=== PATIENT | female | born 1960 | race Caucasian/White ===

== ENCOUNTER 2022-10-18 13:24 | Outpatient (CLI) | payer OTHER, SELFPAY ==
--- NOTE | 2022-10-18 14:00 | CRLHL7_ITS ---
For Patients: As a result of the Century Cures Act, medical imaging exams and procedure reports are released immediately into your electronic medical record. You may view this report before your referring provider. If you have questions, please contact your health care provider. CT ANGIOGRAM NECK DATE: 10/19/2022 CLINICAL HISTORY: Patient with fibromuscular dysplasia. TECHNIQUE: Standard helical CT image acquisition of the neck up to the skull base after bolus intravenous contrast enhancement. Multiplanar reconstructed images performed on a separate workstation. COMPARISON: None. FINDINGS: There is mild luminal irregularity in the mid cervical segments of the internal carotid arteries bilaterally, consistent with fibromuscular dysplasia. 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 The origins of the great vessels from the aortic arch are patent. The origin of the right vertebral artery is patent. The origin of the left vertebral artery is patent. The common carotid arteries are patent. There is no stenosis at the origin of the right internal carotid artery. There is no stenosis at the origin of the left internal carotid artery. The rest of the cervical segments of the internal carotid arteries are patent up to the skull base. The right vertebral artery is dominant. The cervical segments of the vertebral arteries are patent up to the skull base. The visualized lung apices are unremarkable. The thyroid gland is unremarkable. The soft tissues of the neck are unremarkable. There are degenerative changes in the cervical spine. IMPRESSION: Mild luminal irregularity in the mid cervical segments of the internal carotid arteries bilaterally is consistent with fibromuscular dysplasia. 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 Please note that all CT scans at this facility use dose modulation, iterative reconstruction, and/or weight-based dosing when appropriate to reduce radiation dose to as low as reasonably achievable. Dictated by: Evelin Thakur MD @ 10/19/2022 07:17:50 (Electronically Signed)
--- NOTE | 2022-10-18 14:10 | CRLHL7_ITS ---
For Patients: As a result of the Century Cures Act, medical imaging exams and procedure reports are released immediately into your electronic medical record. You may view this report before your referring provider. If you have questions, please contact your health care provider. CT ANGIOGRAM HEAD DATE: 10/19/2022 CLINICAL HISTORY: Patient with fibromuscular dysplasia. TECHNIQUE: Standard helical CT image acquisition through the intracranial circulation following intravenous administration of contrast material with bolus tracking. Multiplanar reconstructed images were performed and interpreted. COMPARISON: None. FINDINGS: There is no cerebral aneurysm or large vessel occlusion. The right internal carotid artery is normal. The right middle cerebral artery and its branches are normal. The right anterior cerebral artery and its branches are normal. The left internal carotid artery is normal. The left middle cerebral artery and its branches are normal. The left anterior cerebral artery and its branches are normal. The anterior communicating artery is well visualized and appears normal. The right vertebral artery and PICA are normal. The left vertebral artery and PICA are normal. The right vertebral artery is dominant. The basilar artery is patent and appears normal. The right posterior cerebral artery is normal. The left posterior cerebral artery is normal. The visualized venous structures are patent. IMPRESSION: Normal CT angiogram of the head without intracranial aneurysm or other neurovascular abnormality. Please note that all CT scans at this facility use dose modulation, iterative reconstruction, and/or weight-based dosing when appropriate to reduce radiation dose to as low as reasonably achievable. Dictated by: Evelin Thakur MD @ 10/19/2022 07:21:28 (Electronically Signed)
== END 2022-10-18 13:25 | disposition home or self-care (01) ==
PROVIDERS: PCP Family Medicine
DX: I25.42 Coronary artery dissection (principal); I77.3 Arterial fibromuscular dysplasia
CPT/HCPCS: 70496; 70498; Q9967

== ENCOUNTER 2023-02-23 08:43 | Outpatient (CLI) | payer OTHER, SELFPAY ==
--- NOTE | 2023-02-23 08:36 | W.ANESCHARGE ---
Anesthesia Charges Start Date/Time Anesthesia Start Date: 02/23/23 Anesthesia Start Time: 09:26 Stop Date/Time Anesthesia Stop Date: 02/23/23 Anesthesia Stop Time: 10:12
--- NOTE | 2023-02-23 10:15 | W.ANESCHARGE ---
Anesthesia Charges Start Date/Time Anesthesia Start Date: 02/23/23 Anesthesia Start Time: 09:26 Stop Date/Time Anesthesia Stop Date: 02/23/23 Anesthesia Stop Time: 10:12
== END 2023-02-23 08:44 | disposition home or self-care (01) ==
LOC: OP CLINIC 08:45
PROVIDERS: PCP Family Medicine; Visit Provider Surgery
DX: Z12.11 Encounter for screening for malignant neoplasm of colon (principal); K63.5 Polyp of colon; K63.89 Other specified diseases of intestine
CPT/HCPCS: 45380; 45385; 811; 88305; J2704

== ENCOUNTER 2023-03-23 15:48 | Outpatient (CLI) | payer OTHER, SELFPAY | END 2023-03-23 15:49 | disposition home or self-care (01) | PROVIDERS: PCP Family Medicine; Visit Provider Family Medicine | DX: Z00.00 Encounter for general adult medical examination without abnormal findings (principal); R63.5 Abnormal weight gain; R61 Generalized hyperhidrosis; F41.9 Anxiety disorder, unspecified; Z11.59 Encounter for screening for other viral diseases | CPT/HCPCS: 84443; 86803 ==

== ENCOUNTER 2023-04-18 17:05 | Outpatient (CLI) | payer OTHER, SELFPAY ==
--- NOTE | 2023-04-18 17:15 | CRLHL7_ITS ---
For Patients: As a result of the Century Cures Act, medical imaging exams and procedure reports are released immediately into your electronic medical record. You may view this report before your referring provider. If you have questions, please contact your health care provider. BILATERAL SCREENING MAMMOGRAM WITH COMPUTER-AIDED DETECTION AND TOMOSYNTHESIS TECHNIQUE: CC and MLO views were obtained. These mammographic images have been obtained using full-field digital technique. These mammographic images were interpreted with the benefit of computer-aided detection. Breast Tomosynthesis was used in this interpretation. COMPARISON FILM: 04/26/19, 03/28/18, 11/30/16. FINDINGS: The breasts are heterogeneously dense, which may obscure small masses IMPRESSION: There is no radiographic evidence for malignancy. ASSESSMENT: BI-RADS Category 2: Benign RECOMMENDATION: Routine screening mammogram in 1 year. A lay language report of this examination will be provided to the patient. Matthew Menchaca M.D. Diagnostic Radiologist [email or web address]/jose armando Transcribed: 12:15 p.fish suárez/Dictated by: Matthew Menchaca MD @ 04/21/2023 11:08:00 AM (Electronically Signed)
== END 2023-04-18 17:06 | disposition home or self-care (01) ==
LOC: MAMMO 17:06
PROVIDERS: PCP Family Medicine; Visit Provider Family Medicine
DX: Z12.31 Encounter for screening mammogram for malignant neoplasm of breast (principal); R92.2 Inconclusive mammogram
CPT/HCPCS: 77063; 77067

== ENCOUNTER 2024-04-22 12:50 | Outpatient (CLI) | payer OTHER, SELFPAY ==
--- NOTE | 2024-04-22 13:00 | CRLHL7_ITS ---
For Patients: As a result of the Century Cures Act, medical imaging exams and procedure reports are released immediately into your electronic medical record. You may view this report before your referring provider. If you have questions, please contact your health care provider. BILATERAL SCREENING MAMMOGRAM WITH COMPUTER-AIDED DETECTION AND TOMOSYNTHESIS TECHNIQUE: CC and MLO views were obtained. These mammographic images have been obtained using full-field digital technique. These mammographic images were interpreted with the benefit of computer-aided detection. Breast Tomosynthesis was used in this interpretation. COMPARISON FILM: 04/18/23, 04/26/19, 03/28/18. FINDINGS: The breasts are heterogeneously dense, which may obscure small masses. IMPRESSION: There is no radiographic evidence for malignancy. ASSESSMENT: BI-RADS Category 1: Negative RECOMMENDATION: Routine screening mammogram in 1 year. A lay language report of this examination will be provided to the patient. Matthew Menchaca M.D. Diagnostic Radiologist [email or web address] LEMUEL/jose armando Transcribed: 2:00 p.mNeo suárez/Dictated by: Matthew Menchaca MD @ 04/29/2024 9:54:00 AM (Electronically Signed)
== END 2024-04-22 12:51 | disposition home or self-care (01) ==
LOC: MAMMO 12:51
PROVIDERS: PCP Family Medicine; Visit Provider Family Medicine
DX: Z12.31 Encounter for screening mammogram for malignant neoplasm of breast (principal); R92.333 Mammographic heterogeneous density, bilateral breasts
CPT/HCPCS: 77063; 77067

== ENCOUNTER 2024-05-09 13:33 | Outpatient (CLI) | payer OTHER, SELFPAY ==
--- NOTE | 2024-05-09 13:45 | CRLHL7_ITS ---
For Patients: As a result of the 21st Century Cures Act, medical imaging exams and procedure reports are released immediately into your electronic medical record. You may view this report before your referring provider. If you have questions, please contact your health care provider. CLINICAL INDICATION: Left shoulder pain. COMPARISON IMAGING STUDIES: None available at time of interpretation. TECHNICAL: Non-contrast MRI of the left shoulder. Axial, sagittal oblique and coronal oblique T1, PD, PD FS, T2 and T2 FS images. 1.5 Angle MR scanner. FINDINGS: GLENOHUMERAL JOINT: Effusion: Physiologic quantity of joint fluid. Humeral Head Articular Cartilage: Maintained. Glenoid Articular Cartilage: Maintained. Alignment: Maintained. Capsule: No generalized capsular edema or capsular thickening. OSSEOUS STRUCTURES: No fracture or avascular necrosis. Small focus of reactive bone marrow edema involves the greater tuberosity. CORACOACROMIAL ARCH: Acromial Morphology: Type 2 acromial morphology. Slight anterolateral downward sloping of the acromion. No os acromiale. There is spurring of the undersurface of the anterolateral acromion. Lateral acromial thickness is 6 mm. Acromiohumeral Interval: At its narrowest, the interval measures 5 mm. Mild prominence of the coracoacromial ligament. Coracohumeral Interval: At its narrowest, the coracohumeral interval measures 10 mm. Coracoid index is 16 mm. ACROMIOCLAVICULAR JOINT REGION: AC joint intact. Coracoclavicular ligament intact. BURSAE: There is a small amount of subacromial-subdeltoid and subcoracoid bursal fluid present. ROTATOR CUFF TENDONS AND MUSCLES AND DELTOID: Supraspinatus and Infraspinatus: The distal supraspinatus tendon is abnormal over an approximately 18 millimeter anterior/posterior by 9 millimeter medial/lateral extent. This relates to a combination of tendinosis and distal tendon tearing. This includes a 6 millimeter area of probable full-thickness tearing present at the footplate as seen on coronal oblique T2 image number 13 of series 6. Additional partial tearing is present adjacent to that is small area of suspected full-thickness tearing. No supraspinatus muscle atrophy. Distal infraspinatus tendon is intact. No infraspinatus muscle atrophy. Teres Minor: Distal teres minor tendon is intact. No muscle atrophy. Subscapularis: Mild distal subscapularis tendinosis. No subscapularis tendon tear or muscle atrophy. Deltoid: No muscle atrophy or edema. BICEPS TENDON, LONG HEAD: The long head of the biceps tendon is intact. No subluxation or dislocation of tendon from bicipital groove. GLENOID LABRUM: Attenuated and frayed appearance of the posterior superior labrum. OTHER FINDINGS: There is no abnormality within the suprascapular or spinoglenoid notches nor within the quadrilateral space. No axillary adenopathy or mass. IMPRESSION: 1. Small area of suspected full-thickness supraspinatus tendon tearing at the footplate. No muscle atrophy. 2. Small amount of subacromial-subdeltoid and subcoracoid bursal fluid suggesting bursitis. 3. Slight anterior lateral downward sloping of the acromion with subacromial spurring. Mildly narrowed acromial humeral interval. 4. No fracture. Dictated by Faustino Garrido MD @ 05/10/2024 8:23:47 AM (Electronically Signed)
== END 2024-05-09 13:34 | disposition home or self-care (01) ==
PROVIDERS: PCP Family Medicine; Visit Provider Family Medicine
DX: M25.512 Pain in left shoulder (principal); M75.102 Unspecified rotator cuff tear or rupture of left shoulder, not specified as traumatic; M75.52 Bursitis of left shoulder
CPT/HCPCS: 73221; 87086

== ENCOUNTER 2024-05-21 10:27 | Outpatient (CLI) | payer OTHER, SELFPAY ==
[2024-05-21 11:56] VITALS: BP 128/70; PULSE 76; RESP 18
--- NOTE | 2024-05-21 13:16 | W.PM.STED ---
Stress Test Note Date Date Seen: 05/21/24 Date of test: 05/21/24 Providers Primary care provider: Marjan Veliz Stress test physician: Ricky Ovalles Stress Test Note Stress test ordered: Exercise Stress Test Indication for test: Chest pain, history of SCAD Results discussion: This nice lady presents for the above test, the risks benefits and side effects are discussed in detail, she would like to proceed. Cardiac stress test medical history form is done. Pretest EKG shows normal sinus rhythm, with a ventricular rate of 60, blood pressure 130 and 74. EKG shows right bundle-branch block patient is exercised for a total time of 7 minutes 34 seconds following Raji protocol, she achieved a metabolic equivalent of 9.1 Mets, with a maximum heart rate of 138 which is 102% of the max. Subjectively she did develop left-sided chest discomfort with pressure, that resolved with recovery. Test was terminated, because of shortness of breath and chest pain. Review of her tracing did not show any significant ST wave changes suggestive of ischemia, there was no dysrhythmias. Impression: Positive stress test that is subjectively positive, electrographic Johana negative. Follow up suggested: Given her history, of angioplasty with SCAD. Further testing is suggested, such as the exercise Myoview. Review with her professional development manager at [facility] is suggested. Patient left this testing facility in good condition back to baseline.
== END 2024-05-21 11:58 | disposition home or self-care (01) ==
LOC: STRESS 10:28
PROVIDERS: PCP Family Medicine; Visit Provider Family Medicine
DX: R07.89 Other chest pain (principal); I25.10 Atherosclerotic heart disease of native coronary artery without angina pectoris; I77.3 Arterial fibromuscular dysplasia
CPT/HCPCS: 93016; 93017

== ENCOUNTER 2024-06-17 14:30 | Outpatient (CLI) | payer OTHER, SELFPAY | END 2024-06-17 14:31 | disposition home or self-care (01) | LOC: NFLDREF 06-20 13:34 | PROVIDERS: PCP Family Medicine; Referring Provider Family Medicine; Visit Provider Family Medicine | DX: R82.90 Unspecified abnormal findings in urine (principal) | CPT/HCPCS: 87086 ==

== ENCOUNTER 2024-06-28 09:11 | Day surgery (SDC) | payer OTHER, SELFPAY ==
[2024-06-28] VITALS (15 sets, daily range): BP systolic 100–135; BP diastolic 49–68; PULSE 60–72; RESP 16; TEMP 36.1–36.7; O2SAT 96–100; BMI 32.2
[2024-06-28] MEDS: SODIUM CHLORIDE 0.9 % (FLUSH) 10 ML SYRINGE IVF (09:42)
[2024-06-28] MEDS: 0.9 % SODIUM CHLORIDE 500 ML 500 ML 100 ML IV (09:42)
--- NOTE | 2024-06-28 09:46 | P.ORPRC_ITS ---
Procedure Note Date of procedure: 06/28/24 Procedure: PREOPERATIVE DIAGNOSES: 1. Left shoulder rotator cuff tear. 2. Left shoulder subacromial impingement syndrome. POSTOPERATIVE DIAGNOSES: 1. Left shoulder rotator cuff tear - anterior supraspinatus 2. Left shoulder subacromial impingement syndrome. NAME OF OPERATION: 1. Left shoulder arthroscopic rotator cuff repair. 2. Left shoulder arthroscopic bursectomy, subacromial decompression/partial acromioplasty. SURGEON: Christaino Cee MD ANESTHESIOLOGIST AND CRITICAL CARE: Karin Bullock P.A.-C.. An compliance assistant was critical for this case to aide in patient positioning, suture manipulation, arm positioning, instrument positioning, and closure. ANESTHESIA: General plus preoperative regional nerve block. IMPLANTS: Arthrex knotless 2.6 mm FiberTak anchors x2; Arthrex 5.5 mm SwiveLock anchor. COMPLICATIONS: None ESTIMATED BLOOD LOSS: 10 mL INDICATIONS: The patient is a pleasant, 63-year-old female who has experienced right shoulder pain that has been increasing in recent time. Physical exam and imaging were consistent with a rotator cuff tear. Given these findings, as well as the weakness and pain, and failure to improve with nonoperative management, recommendation was made for surgery. FINDINGS: Exam under anesthesia revealed stable shoulder with full range of motion. The diagnostic arthroscopy revealed healthy chondral surfaces of the glenoid and humeral head. The Subscapularis tendon was intact. The long head o f the biceps tendon was intact. The rotator cuff tendon was found to be torn full thickness at the anterior margin of the supraspinatus measuring 1.5 cm in the anterior-posterior direction. The glenoid labrum was intact. No loose bodies were identified within the pouch or subscapularis recess. Significant downsloping of the anterior lateral acromion causing impingement the rotator cuff attachment. PROCEDURE: Following a thorough discussion of risks, benefits, and alternatives, consent was obtained and the operative shoulder was marked. A regional nerve block was performed by anesthesia staff in preop holding. The patient was brought to the operating room and placed supine on the operating table. Induction of anesthesia was completed, and patient was given IV Ancef preoperatively for prophylaxis. A surgical time-out was performed confirming patient identity, surgical site, and procedure. Patient was placed into the beach chair position. Head was placed in padded overhead crane inspector in neutral alignment, and all bony prominences were well padded. The operative shoulder and upper extremity were prepped and draped in the appropriate sterile fashion using ChloraPrep. The glenohumeral joint was injected with 40 mL of normal saline using and 18g spinal needle from a posterior approach. Posterior portal was established. Anterior portal was established after localization with a spinal needle and a 7.0 mm cannula was placed here. Diagnostic arthroscopy was then performed with findings as noted above. There was noted be a tear of the anterior supraspinatus. A PDS suture was placed percutaneously using a spinal needle through the tear sites that could be identified from the subacromial space. Frayed supraspinatus tissue was debrided using arthroscopic shaver. The camera was then placed into the subacromial space and a lateral portal was established after localization with spinal needle.. Subacromial bursectomy was performed using arthroscopic shaver. After debriding the acromion of soft tissue it was noted to be downsloping significantly and causing impingement on the rotator cuff. Decision was made to proceed with subacromial decompression acromioplasty to create more space for the rotator cuff. Partial acromioplasty was performed using arthroscopic bur. Acromioplasty was completed using the bone block cutting technique with the bur placed posteriorly while viewing laterally. After the acromioplasty was performed. A passport cannulas placed in the lateral portal. The supraspinatus footprint was debrided of soft tissue and lightly decorticated using the bone-cutting shaver. After debridement, the tear measured 1.5 cm anterior posterior direction. Small stab incisions were placed off the lateral aspect of the acromion. Through these stab incisions knotless 2.6 mm FiberTak anchors were placed in the anterior medial and posterior medial aspects of the supraspinatus footprint. A FiberLink suture was then passed through the cuff in used to pass each set of sutures independently. Medial row repair was then performed using the knotless anchors. FiberLink suture was then placed posteriorly the legs tag suture to incorporate the dog ear posteriorly. FiberTape sutures and FiberLink suture were then placed into a 5.5 mm SwiveLock anchor. Sutures were tensioned the SwiveLock anchor was secured into position. Excellent securing of the rotator cuff was achieved with good tension on the cuff. The eyelet sutures were tugged on and found that the anchor had excellent stability within the bone. The shoulder was placed through range of motion and found to be stable. The rotator cuff was re-probed and found to be stable. Remnant sutures were then cut and removed. Instruments and cannulas were removed. Excess fluid was drained, closure performed with 3-0 nylon simple interrupted sutures.. Sterile dressings were applied and arm was placed into an abduction sling. Patient was then rotated back into supine position, woken from anesthesia, transferred to the PACU in stable condition. PLAN: 1. Discharged to home day of surgery. 2. Ice for pain and swelling. 3. Tylenol and oxycodone as needed for pain control. 4. Abduction sling at all times except for ROM and showering. -Remove sling several times daily for pendulum exercises finger, wrist, and elbow range of motion. 5. Follow-up in orthopedic clinic in 10-14 days for wound check and suture removal. 6. Will initiate formal physical therapy 2 weeks postoperatively per the standard rotator cuff repair protocol.
--- NOTE | 2024-06-28 09:46 | W.PM.H&PU ---
History & Physical Update History & Physical Update H&P Reviewed and patient assessed: No changes noted
[2024-06-28] MEDS: fentaNYL 100 MCG/2 ML inj IVP (10:33)
[2024-06-28] MEDS: MIDAZOLAM HCL 1 MG/ML inj IVP (10:33)
--- NOTE | 2024-06-28 10:39 | SUR.PREOP ---
TIME?OUT:?1032 PT/RN/MDA?VERIFICATION?OF?SURGICAL?SITE Left Shoulder,?PROCEDURE Nerve Block,?AND?CONSENT OBTAINED?PRIOR?TO?INVASIVE?PROCEDURE.
[2024-06-28] MEDS: CEFAZOLIN 2 GM INJ IVP (11:10)
--- NOTE | 2024-06-28 11:26 | P.NB_ITS ---
Nerve Block Nerve Block Time Seen by Provider: 10:35 Date Seen: 06/28/24 Type of block requested by surgeon for post-operative analgesia: supraclavicular Side: left Time out performed: Yes Verification of patient name: Yes Verification of date of : Yes Site marking: site marked Name of person performing procedure: Will Continuous monitoring Was continuous monitoring of O2 sat, B/P, quality assurance monitor body, recorded every 15 minutes?: Yes Procedure Checklist: sterile prep, needles and gloves Ultrasound guided. Images saved: Yes Medications given in 5ml increments after negative aspiration: Ropivicaine %: 0.5 mL: 20 Needle gauge: 22 Patient tolerated procedure well: Yes Block Charges Block Charge (with Pro Fee): Brachial Plexus Use of Ultrasound Machine for Block: Yes- US Guidance/pain block
[2024-06-28] MEDS: EPINEPHrine 1 MG in SODIUM CHLORIDE IRRIG SOLUTION 3,000 ML 9003 MG IRRIGATION ×4 (11:45→12:30)
[2024-06-28] MEDS: LIDOCAINE 1%-EPI 1:100,000 20 ML INFILTRATI (11:47)
--- NOTE | 2024-06-28 13:10 | W.ANESCHARGE ---
Anesthesia Charges Start Date/Time Anesthesia Start Date: 06/28/24 Anesthesia Start Time: 10:53 Stop Date/Time Anesthesia Stop Date: 06/28/24 Anesthesia Stop Time: 13:23
[2024-06-28] MEDS: 0.9 % SODIUM CHLORIDE 500 ML 500 ML 30 ML IV (13:26)
--- NOTE | 2024-06-28 13:27 | W.ANESCHARGE ---
Anesthesia Charges Start Date/Time Anesthesia Start Date: 06/28/24 Anesthesia Start Time: 10:53 Stop Date/Time Anesthesia Stop Date: 06/28/24 Anesthesia Stop Time: 13:23
== END 2024-06-28 15:28 | disposition home or self-care (01) ==
LOC: OR 09:13
PROVIDERS: PCP Family Medicine; Visit Provider Orthopaedic Surgery
PROC: (CPT 29805; principal; 2024-06-28 11:00)
DX: M75.122 Complete rotator cuff tear or rupture of left shoulder, not specified as traumatic (principal); M75.42 Impingement syndrome of left shoulder; G89.18 Other acute postprocedural pain
CPT/HCPCS: 29827; 29826; 01630; 64415; 76942; C1713; J0171; J0330; J0690; J1100; J2250; J2371; J2405; J2704; J2795; J3010; J7030

== ENCOUNTER 2024-11-06 13:45 | Outpatient (RCR) | payer OTHER, SELFPAY | END 2025-03-06 23:59 | disposition home or self-care (01) | PROVIDERS: PCP Family Medicine; Visit Provider Orthopaedic Surgery | DX: Z48.89 Encounter for other specified surgical aftercare (principal); Z51.89 Encounter for other specified aftercare | CPT/HCPCS: 97110; 97140; 97162 ==

== ENCOUNTER 2025-04-09 12:53 | Outpatient (CLI) | payer OTHER, SELFPAY | END 2025-04-09 12:54 | disposition home or self-care (01) | PROVIDERS: PCP Family Medicine; Visit Provider Family Medicine | DX: Z00.00 Encounter for general adult medical examination without abnormal findings (principal); Z76.89 Persons encountering health services in other specified circumstances | CPT/HCPCS: 80053; 80061; 84443 ==

== ENCOUNTER 2025-05-13 13:09 | Outpatient (CLI) | payer OTHER, SELFPAY ==
--- NOTE | 2025-05-13 13:00 | CRLHL7_ITS ---
For Patients: As a result of the Century Cures Act, medical imaging exams and procedure reports are released immediately into your electronic medical record. You may view this report before your referring provider. If you have questions, please contact your health care provider. INDICATION: BILATERAL SCREENIN MAMMOGRAM, ASYMPTOMATIC 64 Y/O FEMALE COMPARISON: 04/22/24, 04/18/23, 05/03/19 TECHNIQUE: Digital mammogram in CC and MLO projections including computer-aided detection (CAD) and tomosynthesis. BREAST COMPOSITION: The breasts are heterogeneously dense, which may obscure small masses. FINDINGS: No suspicious findings. ASSESSMENT: BI-RADS 2 Benign RECOMMENDATION: Annual screening mammogram. A lay language report of this examination will be provided to the patient. Dictated by: Matthew Menchaca MD @ 05/14/2025 10:26:55 (Electronically Signed)
== END 2025-05-13 13:10 | disposition home or self-care (01) ==
LOC: MAMMO 13:09
PROVIDERS: PCP Family Medicine; Visit Provider Family Medicine
DX: Z12.31 Encounter for screening mammogram for malignant neoplasm of breast (principal); R92.333 Mammographic heterogeneous density, bilateral breasts
CPT/HCPCS: 77063; 77067